=== PATIENT | female | born 1990 | race Two or more races ===

== ENCOUNTER 2022-06-28 07:31 | Emergency (ER) | payer MEDICAID, OTHER ==
[~2022-06-28] VITALS: Ht 167.6 cm; Wt 117.0 kg
[2022-06-28] MEDS ORDERED: METOCLOPRAMIDE HCL 10MG/2ML VIAL IV STA (08:54)
[2022-06-28] MEDS ORDERED: SODIUM CHLORIDE 0.9% 1,000 ML IV ONE (09:00)
[2022-06-28 09:33] VITALS: BP 137/84
[2022-06-28 10:10] LABS: BASOPHILS % 0.1 % (0.0-2.0); EOSINOPHILS % 0.5 % (0.0-5.0); HEMATOCRIT. 37.8 % (36.0-48.0); HEMOGLOBIN. 12.9 g/dL (12.0-16.0); LYMPHOCYTES % 29.4 % (20.0-50.0); MEAN CORPUSCULAR HEMOGLOBIN 29.7 pg (28.0-32.0); MEAN CORPUSCULAR VOLUME 87.5 fL (81.0-99.0); MEAN PLATELET VOLUME 7.8 fl (7.4-10.4); MONOCYTES % 7.8 % (2.0-8.0); NEUTROPHILS % 62.2 % (40.0-76.0); PLATELET 310 x1000/uL (130-400); RED BLOOD CELL COUNT 4.32 mill/uL (4.2-5.4); RED CELL DISTRIBUTION WIDTH 14.3 % (11.6-14.6)
[2022-06-28 10:22] LABS: CHLORIDE 104 mEq/L (98-107)
[2022-06-28 13:46] LABS: CLARITY URINE CLOUDY (CLEAR); COLOR URINE YELLOW (YELLOW); KETONES URINE 1+ (NEGATIVE); LEUKOCYTE ESTERASE URINE 3+ (NEGATIVE); NITRITE URINE NEGATIVE (NEGATIVE); OCCULT BLOOD URINE NEGATIVE (NEGATIVE); PH URINE 6.5 (4.5-8.0); PROTEIN URINE TRACE (NEGATIVE); SPECIFIC GRAVITY URINE 1.023 (1.005-1.030)
== END 2022-06-28 13:40 | disposition home or self-care (01) ==
LOC: ER 07:31
DX: O26.891 Other specified pregnancy related conditions, first trimester (principal); R11.2 Nausea with vomiting, unspecified; R10.13 Epigastric pain; Z3A.16 16 weeks gestation of pregnancy
CPT/HCPCS: 36415; 76805; 80053; 81003; 85025; 87086; 96361; 96374; 99284; J2765; J7030; Z7610

== ENCOUNTER 2022-11-10 13:14 | Inpatient (IN) | payer OTHER ==
[~2022-11-10] VITALS: Ht 167.6 cm; Wt 115.2 kg
[2022-11-10] MEDS ORDERED: LABETALOL HCL 100MG TABLET PO STA (14:35)
[2022-11-10] MEDS ORDERED: MISOPROSTOL 100MCG TABLET RC SCH (14:45)
[2022-11-10] MEDS ORDERED: OXYTOCIN 30 UNITS/500ML NS PMX 500 ML IV SCH (14:45)
[2022-11-10 16:00] LABS: BASOPHILS % 0.2 % (0.0-2.0); EOSINOPHILS % 0.2 % (0.0-5.0); HEMATOCRIT. 35.6 % (36.0-48.0); LYMPHOCYTES % 25.3 % (20.0-50.0); MEAN CORPUSCULAR HEMOGLOBIN 28.5 pg (28.0-32.0); MEAN CORPUSCULAR VOLUME 84.4 fL (81.0-99.0); MEAN PLATELET VOLUME 8.4 fl (7.4-10.4); MONOCYTES % 6.2 % (2.0-8.0); NEUTROPHILS % 68.1 % (40.0-76.0); PLATELET 331 x1000/uL (130-400); RED BLOOD CELL COUNT 4.22 mill/uL (4.2-5.4); RED CELL DISTRIBUTION WIDTH 13.5 % (11.6-14.6)
[2022-11-10 16:01] LABS: CLARITY URINE CLEAR (CLEAR); COLOR URINE DARK YELLOW (YELLOW); KETONES URINE 1+ (NEGATIVE); LEUKOCYTE ESTERASE URINE 2+ (NEGATIVE); NITRITE URINE NEGATIVE (NEGATIVE); OCCULT BLOOD URINE NEGATIVE (NEGATIVE); PH URINE 5.5 (4.5-8.0); PROTEIN URINE 1+ (NEGATIVE); SPECIFIC GRAVITY URINE 1.038 (1.005-1.030)
[2022-11-10 16:12] LABS: INR 0.9; PARTIAL THROMBOPLASTIN TIME 27.3 sec (23.4-31.0); PROTHROMBIN TIME 10.1 sec (9.6-11.0)
[2022-11-10 16:13] LABS: *AMPHETAMINES SCREEN URINE NEGATIVE (NEGATIVE); *BARBITURATES SCREEN URINE NEGATIVE (NEGATIVE); *BENZODIAZEPINES SCREEN URINE NEGATIVE (NEGATIVE); *COCAINE SCREEN URINE NEGATIVE (NEGATIVE); CANNABINOID URINE SCREEN NEGATIVE (NEGATIVE); METHADONE URINE SCREEN NEGATIVE (NEGATIVE); OPIATES URINE SCREEN NEGATIVE (NEGATIVE); PHENCYCLIDINE URINE SCREEN NEGATIVE (NEGATIVE)
[2022-11-10 17:08] LABS: CHLORIDE 108 mEq/L (98-107)
[2022-11-10 18:18] LABS: HEPATITIS B SURFACE ANTIGEN NEGATIVE
[2022-11-10] MEDS ORDERED: LABETALOL HCL 100MG TABLET PO NR (20:30)
[2022-11-10] MEDS: LABETALOL HCL 100MG TABLET PO SCH (21:22)
[2022-11-11] MEDS: LACTATED RINGERS 1,000 ML IV SCH ×3 (02:45→23:40)
[2022-11-11] MEDS ORDERED: MORPHINE SULFATE/PF 1MG/ML 10ML AMP ONE (09:49)
[2022-11-11] MEDS ORDERED: DEXAMETHASONE 4MG/ML 1ML VIAL ONE (10:19)
[2022-11-11] MEDS ORDERED: CEFAZOLIN SODIUM 1000MG/VIAL ONE (10:19)
[2022-11-11] MEDS ORDERED: EPHEDRINE SULFATE 50MG/ML VIAL ONE (10:19)
[2022-11-11] MEDS ORDERED: OXYTOCIN 10 UNITS/ML 1ML ONE (10:19)
[2022-11-11] MEDS ORDERED: METOCLOPRAMIDE HCL 10MG/2ML VIAL ONE (10:19)
[2022-11-11] MEDS ORDERED: ONDANSETRON HCL 4MG/2ML INJ ONE (10:19)
[2022-11-11] MEDS ORDERED: KETOROLAC 60MG/2ML VIAL IM ONE (10:32)
[2022-11-11] MEDS ORDERED: FENTANYL CITRATE/PF 50MCG/ML 2ML VIAL IV PRN (10:45)
[2022-11-11] MEDS ORDERED: DIPHENHYDRAMINE 50MG/ML VIAL IV PRN (10:45)
[2022-11-11] MEDS ORDERED: ONDANSETRON HCL 4MG/2ML INJ IV PRN (10:45)
[2022-11-11] MEDS ORDERED: NALOXONE HCL 0.4 MG/ML 1ML VIAL IV PRN (10:45)
[2022-11-11] MEDS ORDERED: LANOLIN OINT 7GM TUBE TOP PRN (12:45)
[2022-11-11] MEDS ORDERED: RHO(D) IMMUNE GLOBULIN 300 MCG/SYR IM PRN (12:45)
[2022-11-11] MEDS ORDERED: OXYTOCIN 30 UNITS/500ML NS PMX 500 ML IV SCH (12:45)
[2022-11-11] MEDS ORDERED: IBUPROFEN 400MG TABLET PO PRN (12:45)
[2022-11-11] MEDS ORDERED: DIPHENHYDRAMINE 25MG CAPSULE PO PRN (12:45)
[2022-11-11] MEDS ORDERED: BISACODYL 10MG SUPP PR PRN (12:45)
[2022-11-11] MEDS ORDERED: OXYCODONE HCL/ACETAMINOPHEN 5/325MG TABLET PO PRN (12:45)
[2022-11-11] MEDS ORDERED: HEMORRHOIDAL SUPP PR PRN (12:45)
[2022-11-11] MEDS: SIMETHICONE 80MG TABLET CHEW PO SCH ×2 (13:00→21:00)
[2022-11-11 14:40] VITALS: BP 111/59
[2022-11-11] MEDS: KETOROLAC 30MG/ML VIAL IV SCH ×2 (17:00→23:40)
[2022-11-11 20:00] VITALS: BP 124/81
[2022-11-11] MEDS: DOCUSATE SODIUM 100MG CAPSULE PO SCH (20:57)
[2022-11-11] MEDS: LABETALOL HCL 100MG TABLET PO SCH (20:58)
[2022-11-11] MEDS: MAGNESIUM/ALUMINUM HYDROXIDE/SIMETHICONE 30ML UDC PO SCH (21:00)
[2022-11-12 04:00] VITALS: BP 120/82
[2022-11-12 06:30] LABS: BASOPHILS % 0.1 % (0.0-2.0); EOSINOPHILS % 0.1 % (0.0-5.0); HEMATOCRIT. 28.1 % (36.0-48.0); HEMOGLOBIN. 9.6 g/dL (12.0-16.0); LYMPHOCYTES % 29.9 % (20.0-50.0); MEAN PLATELET VOLUME 8.1 fl (7.4-10.4); MONOCYTES % 6.7 % (2.0-8.0); NEUTROPHILS % 63.2 % (40.0-76.0); PLATELET 259 x1000/uL (130-400); RED BLOOD CELL COUNT 3.31 mill/uL (4.2-5.4); RED CELL DISTRIBUTION WIDTH 13.5 % (11.6-14.6)
[2022-11-12 07:45] VITALS: BP 115/64
[2022-11-12] MEDS: PRENATAL VIT/FE FUMARATE/FA TABLET PO SCH (08:16)
[2022-11-12] MEDS: FERROUS SULFATE 325MG TABLET PO SCH ×3 (08:16→17:58)
[2022-11-12] MEDS: MAGNESIUM/ALUMINUM HYDROXIDE/SIMETHICONE 30ML UDC PO SCH ×4 (08:17→21:22)
[2022-11-12] MEDS: SIMETHICONE 80MG TABLET CHEW PO SCH ×4 (08:17→21:23)
[2022-11-12] MEDS: LABETALOL HCL 100MG TABLET PO SCH ×2 (08:17→21:24)
[2022-11-12] MEDS: IBUPROFEN 800MG TABLET PO PRN ×2 (12:50→21:23)
[2022-11-12] MEDS ORDERED: ONDANSETRON HCL 4MG/2ML INJ IV PRN (13:00)
[2022-11-12 15:40] VITALS: BP 104/59
[2022-11-12 19:30] VITALS: BP 112/78
[2022-11-12] MEDS: DOCUSATE SODIUM 100MG CAPSULE PO SCH (21:23)
[2022-11-13 04:00] VITALS: BP 133/64
[2022-11-13] MEDS: LABETALOL HCL 100MG TABLET PO SCH (08:50)
[2022-11-13] MEDS: SIMETHICONE 80MG TABLET CHEW PO SCH (08:52)
[2022-11-13] MEDS: MAGNESIUM/ALUMINUM HYDROXIDE/SIMETHICONE 30ML UDC PO SCH (08:52)
[2022-11-13] MEDS: PRENATAL VIT/FE FUMARATE/FA TABLET PO SCH (08:52)
[2022-11-13] MEDS: FERROUS SULFATE 325MG TABLET PO SCH (08:53)
[2022-11-13] MEDS: IBUPROFEN 800MG TABLET PO PRN (08:53)
[2022-11-13 09:00] VITALS: BP 111/60
== END 2022-11-13 12:00 | disposition home or self-care (01) | DRG 539 ==
LOC: OBSVTOIN 13:14 → 8 EST LDRP 13:14 → 8EST 11-11 14:40
PROVIDERS: ADMIT Obstetrics & Gynecology; ATTEND Obstetrics & Gynecology
PROC: 10D00Z1 Extraction of Products of Conception, Low, Open Approach (ICD-10-PCS; principal; 2022-11-11)
PROC: 0UT70ZZ Resection of Bilateral Fallopian Tubes, Open Approach (ICD-10-PCS; 2022-11-11)
DX: O34.211 Maternal care for low transverse scar from previous cesarean delivery (principal); O24.92 Unspecified diabetes mellitus in childbirth; O60.14X0 Preterm labor third trimester with preterm delivery third trimester, not applicable or unspecified; E11.65 Type 2 diabetes mellitus with hyperglycemia; O32.1XX0 Maternal care for breech presentation, not applicable or unspecified; O16.4 Unspecified maternal hypertension, complicating childbirth; Z20.822 Contact with and (suspected) exposure to COVID-19; Z37.0 Single live birth; Z3A.36 36 weeks gestation of pregnancy; Z91.199 Patient's noncompliance with other medical treatment and regimen due to unspecified reason; Z30.2 Encounter for sterilization
CPT/HCPCS: 36415; 76805; 76818; 80053; 80305; 81003; 84550; 85025; 85384; 86592; 86703; 86762; 86850; 86900; 87340; 87426; 88302; 88307; 99281; J0690; J1100; J1885; J2274; J2405; J2765; J3490; J7120; J2590

== ENCOUNTER 2023-06-27 07:46 | Emergency (ER) | payer OTHER ==
[~2023-06-27] VITALS: Ht 170.2 cm; Wt 90.0 kg
[2023-06-27 08:00] VITALS: BP 181/96; PULSE 86; RESP 18; TEMP 98.1; O2SAT 100
[2023-06-27 09:13] LABS: BASOPHILS % 0.2 % (0.0-2.0); HEMATOCRIT. 39.6 % (36.0-48.0); HEMOGLOBIN. 13.6 g/dL (12.0-16.0); LYMPHOCYTES % 15.3 % (20.0-50.0); MEAN CORPUSCULAR HEMOGLOBIN 29.3 pg (28.0-32.0); MEAN CORPUSCULAR HGB CONC 34.2 g/dL (31.0-37.0); MEAN CORPUSCULAR VOLUME 85.7 fL (81.0-99.0); MEAN PLATELET VOLUME 7.6 fl (7.4-10.4); MONOCYTES % 4.5 % (2.0-8.0); PLATELET 333 x1000/uL (130-400); RED BLOOD CELL COUNT 4.62 mill/uL (4.2-5.4); RED CELL DISTRIBUTION WIDTH 13.5 % (11.6-14.6); WHITE BLOOD COUNT 9.5 x1000/uL (4.5-11.0)
[2023-06-27 09:24] LABS: PROTHROMBIN TIME 10.4 sec (9.6-11.0)
[2023-06-27 09:26] LABS: CHLORIDE 105 mEq/L (98-107); INDEX HEMOLYSI 1 (1-3); INDEX ICTERIC 1 (1-4); INDEX LIPEMIC 1 (1-3); POTASSIUM 3.8 mEq/L (3.5-5.1); SODIUM 137 mEq/L (136-145)
[2023-06-27 09:36] LABS: ALANINE AMINOTRANSFERASE 41 IU/L (13-61); ALBUMIN 3.7 g/dL (3.4-5.0); ASPARTATE AMINOTRANSFERASE 33 IU/L (15-37); BILIRUBIN TOTAL 0.5 mg/dL (0.1-1.0); CALCIUM 8.9 mg/dL (8.5-10.1); CARBON DIOXIDE 28 mEq/L (21-32); CREATININE 0.8 mg/dL (0.6-1.3); GLUCOSE 117 mg/dL (70-105); UREA NITROGEN BLOOD 12 mg/dL (7-21)
[2023-06-27 09:39] LABS: HCG SCREEN NEGATIVE
== END 2023-06-27 10:06 | disposition left against medical advice (07) ==
LOC: ER 07:46
DX: R10.33 Periumbilical pain (principal); I10 Essential (primary) hypertension; Z98.890 Other specified postprocedural states
CPT/HCPCS: 36415; 80053; 84703; 85025; 99283